=== PATIENT | female | born 1965 | race Caucasian/White ===

== ENCOUNTER 2023-01-26 23:17 | Outpatient (CLI) | payer MEDICAID | END 2023-01-26 23:18 | disposition critical access hospital (66) | LOC: EMS 23:17 | DX: M54.50 Low back pain, unspecified (principal); W18.30XA Fall on same level, unspecified, initial encounter; Y93.01 Activity, walking, marching and hiking; Y92.89 Other specified places as the place of occurrence of the external cause; R51.9 Headache, unspecified | CPT/HCPCS: A0425; A0429; A0999 ==

== ENCOUNTER 2023-01-26 23:40 | Emergency (ER) | payer MEDICAID ==
--- NOTE | 2023-01-26 23:39 | ED Physician Documentation ---
PD HPI Fall - Stated complaint Stated Complaint: GLF - History obtained from History obtained from: Patient - Additional information Additional information: COOKIE. HPI from patient. Patient is at [facility] ([facility]) where she is undergoing detox from alcohol. At approximately 7 PM tonight, while ambulating in the hallway with her walker, she says her walker got caught on some type of fixture on the floor, causing her to fall. She says she fell backwards onto her buttocks and had sudden onset of severe low back pain. She says the pain is predominantly midline of the lower back but, occasionally, radiates bilaterally and thus across the entire lower back at times. She says the pain is worse with movement. She denies numbness, weakness, bowel/bladder incontinence. She has a history of chronic low back pain. Patient says she underwent surgery on her lower thoracic and upper lumbar spine last month at [facility] in [place]. Review of Systems Musculoskeletal: reports: Back pain. denies: Neck pain, Extremity pain, Joint pain Neurologic: denies: Generalized weakness, Focal weakness, Numbness, Headache, Head injury, LOC PD PAST MEDICAL HISTORY - Past Medical History Past Medical History: Yes Musculoskeletal: Chronic back pain, Other (vertebral fractures) - Past Surgical History Past Surgical History: Yes Ortho: Spine surgery - Present Medications Home Medications: Ambulatory Orders Medication Instructions Recorded Confirmed oxyCODONE [Roxicodone] 5 - 10 mg PO Q6H PRN #14 tablet 01/27/23 - Allergies Allergies/Adverse Reactions: Allergies Allergy/AdvReac Type Severity Reaction Status Date / Time No Known Drug Allergies Allergy Verified 01/26/23 23:51 PD ED PE NORMAL - Vitals Vital signs reviewed: Yes - General General: Alert and oriented X 3, No acute distress, Well developed/nourished - Abdomen Abdomen: Soft, Non tender - Back Back: Other (midline and bilateral paralumbar tenderness without obvious deformity; no echymosis, swelling, abrasion) - Extremities Extremities: No edema - Neuro Neuro: No motor deficit (5/5 bilateral dorsi/plantarflexion), No sensory deficit (LTS intact BLE) Results - Vitals Vitals: Oxygen O2 Source Room air - Labs Labs: Laboratory Tests 01/26/23 23:52 Urine Color YELLOW Urine Clarity CLEAR Urine pH 6.5 Ur Specific Pana 1.010 Urine Protein NEGATIVE Urine Glucose (UA) NEGATIVE Urine Ketones NEGATIVE Urine Occult Blood NEGATIVE Urine Nitrite NEGATIVE Urine Bilirubin NEGATIVE Urine Urobilinogen 0.2 (NORMAL) Ur Leukocyte Esterase NEGATIVE Urine RBC None Seen Urine WBC 0-3 Ur Squamous Epith Cells NONE SEEN Urine Bacteria None Seen Urine Opiates Screen NEGATIVE Ur Oxycodone Screen NEGATIVE Urine Methadone Screen NEGATIVE Ur Propoxyphene Screen NEGATIVE Ur Barbiturates Screen NEGATIVE Ur Tricyclics Screen NEGATIVE Ur Phencyclidine Scrn NEGATIVE Ur Amphetamine Screen NEGATIVE U Methamphetamines Scrn NEGATIVE U Benzodiazepines Scrn POSITIVE H Urine Cocaine Screen NEGATIVE U Cannabinoids Screen NEGATIVE - Rads (name of study) CT lumbar spine Relevant Findings:: Prelim report reviewed, See rad report PD Medical Decision Making - ED course Complexity details: reviewed results, re-evaluated patient, considered differential, d/w patient ED course: Patient presents after fall at a local addiction/recovery center. Chief complaint is lower back pain. CT of the lumbar spine is undertaken and this demonstrates old fractures at T12 and L1. Also noted is an L2 compression fracture with augmentation cement. The radiologist notes "fracture lines are evident adjacent to this. Without a prior study for comparison, it is not possible to rule out any refracture of this vertebral body." On initial evaluation, she is given 5 mg p.o. oxycodone. On my initial evaluation, the patient is not in any apparent/acute distress. However, when I went to talk to her about the CT results, she is now in obvious painful distress, crying and expressing significantly worsening of her back pain. She is not having any "red flag" symptoms (such as bowel incontinence, weakness of her legs, numbness of her legs or groin). . On both the initial HPI as well as on this reevaluation, I asked patient if she has any history of misuse and/or addiction problems regarding narcotics/opiates, including prescription medications. She denies having any such history/problems. We discussed options for stronger analgesics. With this conversation, I mentio timothy Lidoderm patches, but she says she has had these before without any improvement in her back pain. After further discussion, we arrived the decision to go with a dose of Dilaudid. She is given 2 mg IM Dilaudid and held in the ED until this has had adequate time to take effect. Reevaluation, she is again in no acute/apparent distress and she reports adequate pain relief. In the interim, ED RN says the patient was able to ambulate to and back from the bathroom without assistance. I am providing her with a short course of oxycodone tablets. Return precautions are reviewed. I am prescribing a short course of short-acting opioid pain medication for this patient. I have reviewed the patients [employer] and no concerning findings were noted. I have discussed that the opioids are for short term therapy only, and will not be refilled from the ED. I do see a recent prescription for oxycodone (beginning of this month), but patient does not currently have this medication as she is in a recovery center. Departure - Departure Disposition: 01 Home, Self Care Clinical Impression: Back injury Qualifiers: Encounter type: initial encounter Qualified Code(s): S39.92XA - Unspecified injury of lower back, initial encounter Condition: Good Instructions: ED Low Back Pain Injury Follow-Up: IRMA DURAND MD [Primary Care Provider] - Prescriptions: oxyCODONE [Roxicodone] 5 - 10 mg PO Q6H PRN #14 tablet PRN Reason: Pain >8 Comments: The CT scan of your lumbar spine shows compression fractures of T12 and L1; however, these appear to be old fractures. The compression fracture of L2, which has been treated with augmentation cement that is seen on the CT scan, does have fracture lines adjacent to the cement. Without previous study for comparative purposes, it is unclear as to whether these fracture lines represent a new injury versus a previous one. As long as your symptoms are controlled and you do not have/develop any significant neurologic deficits (such as bowel incontinence, weakness of the leg(s) independent of pain, numbness of the legs or the groin) the injury can be treated with rest and pain medication. Discharge Date/Time: 01/27/23 06:54
[2023-01-26 23:55] LABS: MUDS CUTOFF CONCENTRATIONS CUTOFF CONC BELOW:
[2023-01-26 23:57] LABS: BILIRUBIN,URINE NEGATIVE (NEGATIVE); GLUCOSE, URINE (UA) NEGATIVE (NEGATIVE); KETONES,URINE (UA) NEGATIVE (NEGATIVE); LEUKOCYTE ESTERASE, URINE NEGATIVE (NEGATIVE); NITRITE,URINE NEGATIVE (NEGATIVE); OCCULT BLOOD,URINE NEGATIVE (NEGATIVE); PH,URINE 6.5 PH (5.0-7.5); PROTEIN,URINE NEGATIVE (NEGATIVE); UROBILINOGEN,URINE 0.2 (NORMAL) E.U./dL (NORMAL)
[2023-01-27 00:06] LABS: CLARITY,URINE CLEAR (CLEAR)
[2023-01-27 00:07] LABS: BACTERIA,URINE None Seen /HPF (None Seen); RBC,URINE None Seen /HPF (0-5); SQUAMOUS EPITHELIAL CELL,UR NONE SEEN (<= Few); WBC,URINE 0-3 /HPF (0-5)
[2023-01-27 00:08] LABS: AMPHETAMINE SCREEN,URINE NEGATIVE (NEGATIVE); BARBITURATE SCREEN,UR NEGATIVE (NEGATIVE); BENZODIAZEPINES SCREEN, URINE POSITIVE (NEGATIVE); COCAINE SCREEN URINE NEGATIVE (NEGATIVE); METHADONE SCREEN, URINE NEGATIVE (NEGATIVE); METHAMPHETAMINES SCREEN, URINE NEGATIVE (NEGATIVE); OPIATE SCREEN, URINE NEGATIVE (NEGATIVE); OXYCODONE SCREEN, URINE NEGATIVE (NEGATIVE); PROPOXYPHENE SCREEN, URINE NEGATIVE (NEGATIVE); THC CANNABINOID SCREEN, URINE NEGATIVE (NEGATIVE); TRICYCLIC ANTIDEPRESSANT,URINE NEGATIVE (NEGATIVE)
[2023-01-27] MEDS ORDERED: oxyCODONE 5 MG TABLET PO STA (00:32)
[2023-01-27] MEDS ORDERED: ONDANSETRON ODT 4 MG TABLET TL STA (02:47)
[2023-01-27] MEDS ORDERED: LORazepam 0.5 MG TABLET PO STA (03:03)
[2023-01-27] MEDS ORDERED: HYDROmorphone 1 MG/ML CARPUJECT IM STA (03:39)
[2023-01-27 04:39] VITALS: O2SAT 100
[2023-01-27 07:00] VITALS: BP 134/78
--- NOTE | 2023-01-27 09:06 | CT Report ---
PROCEDURE: LUMBAR SPINE WO INDICATIONS: fall, lumbar pain with recent surgery TECHNIQUE: Noncontrast 3 mm thick sections acquired from the T12 level to the sacrum. Sagittal and coronal refo rmats were constructed. For radiation dose reduction, the following was used: automated exposure co ntrol, adjustment of mA and/or kV according to patient size. COMPARISON: None. FINDINGS: Image quality: Excellent. Bones: There is prior vertebral plasty at L2 level with cement material noted in L2 vertebral body an d up to 44% loss of L2 vertebral body height. Chronic appearing anterior wedge compression deformity involving superior endplate of T12 and L1 with up to 53% loss of L1 vertebral body height anteriorly and up to 31% loss of T12 vertebral body height anteriorly. No gross acute vertebral body compression fracture. No acute fracture or dislocation is seen in lower thoracic, lumbar spine and visualized daniel ny pelvis. No suspicious lytic or sclerotic bony lesions. Chronic retropulsion of upper posterior wal l of L1 and L2 is seen causing [id number] central canal stenosis at these levels. T12-L1: Degenerative endplate changes are seen. Mild broad-based disc bulge and bilateral facet arth rosis is seen causing mild central canal stenosis, no significant neural foraminal narrowing. L1-L2: Broad-based disc bulge is seen with mild to moderate central canal stenosis, no significant neural foraminal narrowing. L2-L3: Broad-based disc bulge and bilateral facet arthrosis is seen. Mild central canal stenosis i s noted, no significant neural foraminal narrowing. L3-L4: No significant disc bulge, canal stenosis or neural foraminal narrowing. L4-L5: No significant disc bulge, canal stenosis or neural foraminal narrowing. L5-S1: No significant disc bulge, canal stenosis and bilateral narrowing.. Soft tissues: No retroperitoneal masses or hematomas. Visualized aorta is normal in caliber. IMPRESSION: 1. Chronic appearing superior endplate compression deformities involving T12 and L1 vertebral bodies as described above. 2. Prior vertebroplasty at L2 level as above. 3. No acute fracture or dislocation is seen in lumbar spine. No suspicious bony lesions. 4. Mild degenerative disc bulge and retropulsion of posterior wall at T12-L1 and L1-2 levels causing [id number] central canal stenosis, no significant neural foraminal narrowing. 5. Mild broad-based disc bulge and bilateral facet arthrosis at L2-3 level causing mild central canal stenosis, no significant neural foraminal narrowing. No significant discrepancies from preliminary reading. Reviewed by: John Eagle MD on 01/27/2023 9:04 AM PST Approved by: John Eagle MD on 01/27/2023 9:04 AM PST Station ID: [id number]
== END 2023-01-27 06:54 | disposition home or self-care (01) ==
LOC: ED 23:40
DX: S39.92XA Unspecified injury of lower back, initial encounter (principal); W18.30XA Fall on same level, unspecified, initial encounter; Y93.01 Activity, walking, marching and hiking; Y92.89 Other specified places as the place of occurrence of the external cause
CPT/HCPCS: 72131; 80306; 81001; 96372; 99284; A9270; J1170; Q0162

== ENCOUNTER 2023-01-29 02:59 | Outpatient (CLI) | payer MEDICAID | END 2023-01-29 23:59 | disposition critical access hospital (66) | LOC: EMS 02:59 | DX: R53.1 Weakness (principal); M54.9 Dorsalgia, unspecified | CPT/HCPCS: A0425; A0429; A0999 ==

== ENCOUNTER 2023-01-29 03:18 | Emergency (ER) | payer MEDICAID ==
[2023-01-29 03:35] VITALS: BP 136/83; O2SAT 98
[2023-01-29] MEDS ORDERED: HYDROmorphone 0.5 MG/0.5 ML SYRINGE IM STA (04:07)
--- NOTE | 2023-01-29 04:10 | ED Physician Documentation ---
History of Present Illness - Stated complaint Stated Complaint: DETOXING, LOWER EXTREMITY PAIN/WEAKNESS, BACK PAIN - Chief complaint Chief Complaint: Back Pain - History obtained from History obtained from: Patient - Additonal information Additional information: 57yF with pmh etoh abuse, chronic back pain, ambulatory with walker at baseline, p/w acute on chronic low back pain, BL LE pain, and generalized lower extremity weakness for several months, worsening today when she was given robaxin and fell onto her knees twice. patient denies HT or other injury. denies large volume urinary or fecal incontinence or saddle anesthesia. PD PAST MEDICAL HISTORY - Past Medical History Past Medical History: Yes Musculoskeletal: Chronic back pain, Other - Past Surgical History Past Surgical History: Yes Ortho: Spine surgery - Present Medications Home Medications: Ambulatory Orders Medication Instructions Recorded Confirmed oxyCODONE [Roxicodone] 5 - 10 mg PO Q6H PRN #14 tablet 01/27/23 - Allergies Allergies/Adverse Reactions: Allergies Allergy/AdvReac Type Severity Reaction Status Date / Time No Known Drug Allergies Allergy Verified 01/29/23 03:27 - Social History Does the pt smoke?: No Smoking Status: Never smoker Does the pt drink ETOH?: Yes Does the pt have substance abuse?: No - Immunizations Immunizations are current?: Yes - POLST Patient has POLST: No PD ED PE NORMAL - Vitals Vital signs reviewed: Yes - General General: Alert and oriented X 3, No acute distress, Well developed/nourished - HEENT HEENT: Atraumatic, PERRL, EOMI - Neck Neck: No bony TTP - Back Back: No spinal TTP - Derm Derm: Normal color, Warm and dry - Extremities Extremities: No deformity, No tenderness to palpate, Normal ROM s pain, Other (2+ BL DP pulses. normal sensation and movement) - Neuro Neuro: No motor deficit, No sensory deficit Results - Vitals Vitals: Vital Signs - 24 hr 01/29/23 03:24 Temperature 36.8 C Heart Rate 83 Respiratory 18 Rate Blood Pressure 136/83 H O2 Saturation 98 Oxygen O2 Source Room air PD Medical Decision Making - ED course ED course: 57yF presents to the ED with acute on chronic back pain, leg pain and weakness as well as 2 mechanical falls today with low impact. patient is well appearing, was ambulatory to stretcher, and has no physical exam findings concerning for acute neuro deficit. doubt cord compression given no saddle anesthesia or large volume incontinence. unlikely to have spinal epidural abscess given afebrile. plan to treat symptoms with IM dilaudid. Pain improved s/p dilaudid. patient will be discharged to [facility] to complete her detox program. return precautions given. Departure - Departure Disposition: Home, Self Care Clinical Impression: Back pain Condition: Stable Instructions: ED Chronic Pain Management Comments: You were seen in the emergency department for chronic back pain and leg pain with chronic weakness. You do not have any evident injuries related to your falls. Please follow-up with detox and return to the emergency department if you have any new or worsening symptoms or other concerns.
== END 2023-01-29 05:38 | disposition home or self-care (01) ==
LOC: EDUNIT# → ED 03:18
DX: R29.898 Other symptoms and signs involving the musculoskeletal system (principal); M54.50 Low back pain, unspecified; M79.605 Pain in left leg; M79.604 Pain in right leg; G89.29 Other chronic pain; Z03.89 Encounter for observation for other suspected diseases and conditions ruled out
CPT/HCPCS: 96372; 99283; 99284; J1170